=== PATIENT | female | born 1955 | race Caucasian/White ===

== ENCOUNTER 2017-10-21 13:37 | Emergency (ER) | payer OTHER ==
[~2017-10-21] VITALS: Ht 175.3 cm; Wt 113.4 kg
[~2017-10-21 13:37] MED LIST: ASPI81CH PO; ATOR80 PO; LOSA50 PO; Prinivil10 MG PO
== END 2017-10-21 16:08 | disposition home or self-care (01) ==
LOC: ER 13:37
DX: S70.01XA Contusion of right hip, initial encounter (principal); Z88.5 Allergy status to narcotic agent; Z79.899 Other long term (current) drug therapy; Z79.82 Long term (current) use of aspirin; Z79.84 Long term (current) use of oral hypoglycemic drugs; I10 Essential (primary) hypertension; W07.XXXA Fall from chair, initial encounter
CPT/HCPCS: 73502; 96374; 99283; J2405

== ENCOUNTER → 2018-09-14 | Outpatient (CLI) | payer OTHER | END | disposition home or self-care (01) | LOC: PLD 07:21 → LAB SHORT 07:21 | DX: D22.5 Melanocytic nevi of trunk (principal); L57.0 Actinic keratosis | CPT/HCPCS: 88305 ==

== ENCOUNTER 2019-09-14 08:16 | Day surgery (SDC) | payer MEDICARE, OTHER ==
[~2019-09-14] VITALS: Ht 175.3 cm; Wt 97.4 kg
--- NOTE | 2019-09-14 09:20 | NUR ---
09/14/19 0920 Vivi Cheng PT. VERBALIZES PAIN WHERE SHE PULLED A MUSCLE IN HER GROIN ON HER LEFT SIDE. PAIN IS "0" WITHOUT MOVING BUT "6" WITH MOVEMENT.
== END 2019-09-14 10:40 | disposition home or self-care (01) ==
LOC: ORSCSDS 08:16
PROVIDERS: Internal Medicine Gastroenterology
PROC: 0DBH8ZX Excision of Cecum, Via Natural or Artificial Opening Endoscopic, Diagnostic (ICD-10-PCS; principal; 2019-09-14 09:30)
DX: Z12.11 Encounter for screening for malignant neoplasm of colon (principal); K57.30 Diverticulosis of large intestine without perforation or abscess without bleeding; D12.0 Benign neoplasm of cecum; E11.9 Type 2 diabetes mellitus without complications; I10 Essential (primary) hypertension; Z79.84 Long term (current) use of oral hypoglycemic drugs; Z79.82 Long term (current) use of aspirin; Z79.899 Other long term (current) drug therapy
CPT/HCPCS: 82947; 88305; J2704; J7120

== ENCOUNTER → 2020-04-11 | Outpatient (CLI) | payer MEDICARE, OTHER ==
[~2020-04-11] MED LIST changes: +CELE100 PO; +METF500 PO
== END | disposition home or self-care (01) ==
LOC: LAB 14:55 → LAB SHORT 14:55
DX: Z22.322 Carrier or suspected carrier of Methicillin resistant Staphylococcus aureus (principal)
CPT/HCPCS: 87081

== ENCOUNTER 2020-07-04 06:05 | Day surgery (SDC) | payer MEDICARE, OTHER ==
[~2020-07-04] VITALS: Ht 175.3 cm; Wt 99.5 kg
--- NOTE | 2020-07-04 06:49 | NUR ---
Ambulatory in Day Surgery. Surgical site prepped with 2% Chlorhexidine cloth wipe. History, Chart, Medications and Allergies reviewed before start of procedure.Lungs clear T/O to Auscultation. Patient confirms NPO status and agrees with scheduled surgery. Pre-Op teaching done. Pt verbalizes understanding. Patient States Post-Procedure ride home has been arranged. Patient reports completing Chlorhexadine shower X2 prior to admission to hospital.
--- NOTE | 2020-07-04 11:00 | NUR ---
PT ARRIVED TO UNIT VIA OWN BED, A/O X 4, PLEASANT/COOPERATIVE. POST OP VS COMMENCED AND STABLE. DRESSINGS WITH BULKY GAUZE AND STRETCHY TAPE X 3 L HIP/THIGH C/D/I, GOOD PEDAL PULSES AND CAP REFILL, PT DENIES N/V, TOLERATING PO INTAKE. PT IS ABLE TO WIGGLE ASHVIN FEET
--- NOTE | 2020-07-04 14:45 | NUR ---
PT working with patient
--- NOTE | 2020-07-04 17:44 | NUR ---
shift summary: vss, no acute changes, operative leg dressings remain c/d/i, pt rates pain at 2/10, denies need for prn analgesia. pt ambulated to bathroom x 3, ambulated in hallway, worked with PT, is tolerating PO intake, up in recliner, has visited. Good capillary refill to operative limb, cryotherapy in place, PAS in place
--- NOTE | 2020-07-05 04:45 | NUR ---
SHIFT SUMMARY POD 1 LTHA [id number], PT UP AND AMBULATING TO BATHROOM. MEDICATED FOR PAIN PER EMAR, STATES PAIN MANAGED. VOIDING AND TOLERATING PO, DENIES NAUSEA. PT SLEEPING FOR MOST OF SHIFT. PLAN TO WORK WITH PT/OT AND POSSIBLY DC HOME.
[2020-07-05 05:02] LABS: BASOPHILS ABSOLUTE AUTO 0.01 K/mm3 (0.00-0.23); BASOPHILS PERCENT AUTO 0 % (0-2); EOSINOPHILS ABSOLUTE AUTO 0.01 K/mm3 (0.00-0.68); EOSINOPHILS PERCENT AUTO 0 % (0-6); Hematocrit 30.7 % (33.0-51.0); Hemoglobin 9.7 g/dL (11.5-16.0); IMMATURE GRAN ABSOLUTE AUTO 0.02 K/mm3 (0.00-0.10); IMMATURE GRAN PERCENT AUTO 0 % (0-1); LYMPHOCYTES ABSOLUTE AUTO 2.42 K/mm3 (0.84-5.20); LYMPHOCYTES PERCENT AUTO 38 % (21-46); MONOCYTES ABSOLUTE AUTO 0.65 K/mm3 (0.16-1.47); MONOCYTES PERCENT AUTO 10 % (4-13); Mean Corpuscular HGB Conc 31.6 g/dL (31.5-36.5); Mean Corpuscular Volume 95 fL (80-100); Mean Platelet Volume 9.4 fL (9.1-12.4); NEUTROPHILS ABSOLUTE AUTO 3.33 K/mm3 (1.96-9.15); NEUTROPHILS PERCENT AUTO 52 % (41-73); Platelet Count 253 K/mm3 (150-400); RDW Coefficient Variation 13.5 % (11.7-14.2); RDW Standard Deviation 46.5 fL (35.1-46.3); Red Blood Cell Count 3.23 M/mm3 (3.80-5.20); White Blood Cell Count 6.44 K/mm3 (4.00-11.30)
[2020-07-05 05:22] LABS: Anion Gap 6 mmol/L (6-16); Blood Urea Nitrogen 21 mg/dL (8-24); Bun/Creatinine Ratio 31.9 (12.0-20.0); CO2, Blood 27 mmol/L (21-32); Calcium, Blood 8.1 mg/dL (8.5-10.1); Chloride, Blood 106 mmol/L (98-108); Creatinine, Blood 0.66 mg/dL (0.40-1.00); Glomerular Filtration Rate >60 (60-); Glucose, Blood 118 mg/dL (70-99); Potassium, Blood 3.7 mmol/L (3.5-5.5); Sodium, Blood 139 mmol/L (136-145)
[2020-07-05] MEDS ORDERED: OXAYDO5 M1 PO (10:45)
[2020-07-05] MEDS ORDERED: PROM25 PO (10:45)
--- NOTE | 2020-07-05 14:10 | NUR ---
PATIENT D/C'D HOME WITH SPOUSE AT THIS TIME; BOTH STATE UNDERSTANDING OF MEDS (ENCOURAGED TO USE CAUTIOUSLY PATIENT SEEMS TO BE VERY SENSITIVE TO PO PAIN MEDS,) POST HIP PRECAUTIONS, ACTIVITY, OP PT, F/U APPT, ETC. PATIENT STATES PAIN CONTROLLED WITH PO PAIN MED, TOLERAITNG DIET, VOIDING. DRESSING C/D/I. CIRC CHECKS WNL. NO ACUTE CHANGES OR C/O.
--- NOTE | 2020-07-05 18:20 | NUR ---
Provided prayer for healing and encouragement to January and her . She reports hope and verbalizes appreciation for care. She is being d/c soon.
== END 2020-07-05 14:12 | disposition home or self-care (01) ==
LOC: ORSCMMR 06:05 → ORD 06:05 → ORSCMMR 06:06 → ORD 07:30 → SURS 10:58 → ORSCMMR 10:58 → SURS 07-05 14:12 → ORD 07-05 14:12 → ORSCMMR 07-05 14:12 → ORD 07-11 07:30
PROVIDERS: Orthopaedic Surgery
PROC: 0SRB0JA Replacement of Left Hip Joint with Synthetic Substitute, Uncemented, Open Approach (ICD-10-PCS; principal; 2020-07-04 07:30)
PROC: 8E0YXBZ Computer Assisted Procedure of Lower Extremity (ICD-10-PCS; principal; 2020-07-04 07:30)
DX: M16.12 Unilateral primary osteoarthritis, left hip (principal); I10 Essential (primary) hypertension; E11.9 Type 2 diabetes mellitus without complications; Z79.82 Long term (current) use of aspirin; Z79.84 Long term (current) use of oral hypoglycemic drugs; Z79.899 Other long term (current) drug therapy
CPT/HCPCS: 36415; 72170; 80048; 82947; 83735; 85025; 88300; 94760; 97110; 97116; 97161; 97166; 97530; 97535; A9270; A9270-GY; C1713; C1776; J0171; J0690; J0735; J1100; J1885; J2250; J2405; J2704; J2795; J3010; J7120

== ENCOUNTER 2021-04-02 13:30 | Emergency (ER) | payer OTHER, MEDICARE ==
[~2021-04-02] VITALS: Ht 175.3 cm; Wt 93.0 kg
[~2021-04-02 13:30] MED LIST changes: +OXAYDO5 M1 PO; +PROM25 PO
== END 2021-04-02 17:37 | disposition home or self-care (01) ==
LOC: ER 13:30
DX: S01.81XA Laceration without foreign body of other part of head, initial encounter (principal); I10 Essential (primary) hypertension; R73.03 Prediabetes; Z88.5 Allergy status to narcotic agent; Z88.8 Allergy status to other drugs, medicaments and biological substances; Z79.899 Other long term (current) drug therapy; Z79.82 Long term (current) use of aspirin; Z79.84 Long term (current) use of oral hypoglycemic drugs; W01.190A Fall on same level from slipping, tripping and stumbling with subsequent striking against furniture, initial encounter
CPT/HCPCS: 12011; 99282-25

== ENCOUNTER 2023-03-13 16:28 | Emergency (ER) | payer MEDICARE, OTHER ==
[~2023-03-13] VITALS: Ht 177.8 cm; Wt 98.4 kg
[2023-03-13 16:39] VITALS: BP 181/86
== END 2023-03-13 18:22 | disposition home or self-care (01) ==
LOC: ER 16:28
DX: R04.0 Epistaxis (principal); Z88.5 Allergy status to narcotic agent; Z88.8 Allergy status to other drugs, medicaments and biological substances; Z79.82 Long term (current) use of aspirin; Z79.84 Long term (current) use of oral hypoglycemic drugs; Z79.899 Other long term (current) drug therapy; I10 Essential (primary) hypertension; E78.5 Hyperlipidemia, unspecified; E11.9 Type 2 diabetes mellitus without complications
CPT/HCPCS: 99284; A9270

== ENCOUNTER 2025-01-15 11:52 | Emergency (ER) | payer MEDICARE, OTHER ==
[~2025-01-15] VITALS: Ht 177.8 cm; Wt 95.2 kg
[2025-01-15] MEDS ORDERED: Ketorolac Tromethamine 30mg Vial IV ONE (12:30)
[2025-01-15] MEDS ORDERED: Ondansetron HCl 2 MG / ML 2ML Vial IV ONE (12:30)
[2025-01-15 12:38] LABS: BASOPHILS ABSOLUTE AUTO 0.03 K/mm3 (0.00-0.23); BASOPHILS PERCENT AUTO 1 % (0-2); EOSINOPHILS ABSOLUTE AUTO 0.04 K/mm3 (0.00-0.68); EOSINOPHILS PERCENT AUTO 1 % (0-6); Hematocrit 37.2 % (33.0-51.0); Hemoglobin 12.1 g/dL (11.5-16.0); IMMATURE GRAN ABSOLUTE AUTO 0.01 K/mm3 (0.00-0.10); IMMATURE GRAN PERCENT AUTO 0 % (0-1); LYMPHOCYTES ABSOLUTE AUTO 3.21 K/mm3 (0.84-5.20); LYMPHOCYTES PERCENT AUTO 54 % (21-46); MONOCYTES ABSOLUTE AUTO 0.48 K/mm3 (0.16-1.47); MONOCYTES PERCENT AUTO 8 % (4-13); Mean Corpuscular HGB 29.9 pg (26.0-34.0); Mean Corpuscular HGB Conc 32.5 g/dL (31.5-36.5); Mean Corpuscular Volume 92 fL (80-100); Mean Platelet Volume 10.6 fL (9.1-12.4); NEUTROPHILS ABSOLUTE AUTO 2.17 K/mm3 (1.96-9.15); NEUTROPHILS PERCENT AUTO 37 % (41-73); Platelet Count 232 K/mm3 (150-400); RDW Standard Deviation 46.9 fL (35.1-46.3); Red Blood Cell Count 4.05 M/mm3 (3.80-5.20); White Blood Cell Count 5.94 K/mm3 (4.00-11.30)
[2025-01-15 12:49] LABS: Albumin, Blood 3.3 g/dL (3.4-5.0); Bilirubin, Total 0.3 mg/dL (0.1-1.0); Bun/Creatinine Ratio 38.9 (12.0-20.0); Calcium, Blood 8.4 mg/dL (8.5-10.1); Creatinine, Blood 0.54 mg/dL (0.40-1.00); Globulin, Blood 3.4 g/dL (2.2-4.0); Magnesium, Blood 1.7 mg/dL (1.6-2.4); Potassium, Blood 3.6 mmol/L (3.5-5.5); Total Protein, Blood 6.7 g/dL (6.4-8.2)
[2025-01-15] MEDS ORDERED: NS 1,000 ML IV SCH (13:25)
[2025-01-15 16:30] VITALS: BP 143/72
[2025-01-15] MEDS ORDERED: ONDA4ODT MM (16:42)
== END 2025-01-15 16:50 | disposition home or self-care (01) ==
LOC: ER 11:52
PROVIDERS: Student in an Organized Health Care Education/Training Program
DX: R07.2 Precordial pain (principal); R11.0 Nausea; Z88.5 Allergy status to narcotic agent; Z88.8 Allergy status to other drugs, medicaments and biological substances; I10 Essential (primary) hypertension; E78.5 Hyperlipidemia, unspecified; Z79.84 Long term (current) use of oral hypoglycemic drugs
CPT/HCPCS: 71046; 80053; 83690; 83735; 84484; 85025; 93005; 93010; 96374; 96375; 99284-25; J1885; J2405; J7030